=== PATIENT | male | born 1980 | race Caucasian/White ===

== ENCOUNTER 2016-07-30 22:09 | Emergency (ER) | payer BC, OTHER ==
[2016-07-30 22:29] LABS: SPECIFIC GRAVITY 1.025 (1.001-1.030); URINE BILIRUBIN NEGATIVE (NEGATIVE); URINE BLOOD 4+ (NEGATIVE); URINE GLUCOSE (UA) NEGATIVE (NEGATIVE); URINE LEUKOCYTE ESTERASE TRACE (NEGATIVE); URINE NITRITE NEGATIVE (NEGATIVE); URINE PROTEIN 1+ (NEGATIVE); URINE UROBILINOGEN NORMAL (0-1 mg/dl)
[2016-07-30 22:40] LABS: URINE APPEARANCE TURBID; URINE COLOR BROWN; URINE EPITHELIAL CELLS 0-2 /hpf; URINE RBC PACKED /hpf
[2016-07-30 22:41] LABS: URINE AMORPHOUS SEDIMENT FEW; URINE BACTERIA 2+
[2016-07-30 23:31] LABS: ABSOLUTE NEUTROPHIL COUNT 6.2 K/mm3 (1.8-7.7); BASO # 0.1 K/mm3 (0.0-0.2); BASO % 0.9 % (0.2-1.0); EOS # 0.1 (0.0-0.5); EOS % 0.7 % (0.9-2.9); HEMATOCRIT 44.4 % (32.0-52.0); HEMOGLOBIN 15.4 gm/l (14.0-18.0); IMM NEUT% 0.4 % (0-1); LYMPH # 2.9 (1.0-4.8); LYMPH % 29.3 % (15-45); MEAN CELL VOLUME 81.6 fl (80.0-94.0); MEAN CORPUSCULAR HEMOGLOBIN 28.3 pg (27.0-31.0); MEAN CORPUSCULAR HGB CONC 34.7 g/dl (33.0-37.0); MEAN PLATELET VOLUME 9.2 fl (7.4-10.4); MONO # 0.6 (0.0-0.8); NEUT % 62.7 % (43-75); PLATELET COUNT 347 K/mm3 (130-400); RED CELL DISTRIBUTION WIDTH 13.2 % (11.5-14.5)
[2016-07-30 23:48] LABS: ALB/GLOB RATIO 1.6 (>1.0); ALBUMIN 4.8 gm/dL (3.5-5.7); CALCIUM 9.9 mg/dL (8.6-10.3)
[2016-07-31] MEDS ORDERED: KETOROLAC TROMETHAMINE 30 MG/ML 1 ML VIAL ONE (00:19)
--- NOTE | 2016-07-31 07:04 | CT ---
Exam Type: ABD/PELVIS W/O CON Date and Time: 07/31/2016 12:21 AM Clinical information: Right flank pain. Comparison: None Procedure: Imaging device: [employer] Aqu[employer] [address] scanner 1 mm axial images were obtained through the abdomen and pelvis. Stacked reconstructed 3, 4 and 5 mm images were photographed in the axial coronal and sagittal planes. No oral contrast was utilized for this examination. Exam: Without intravenous contrast. FINDINGS: Lung bases: There is linear atelectasis or scarring identified within the left pulmonary base. No effusion or pneumothorax is observed. Liver: the liver is homogeneous with no discrete abnormality visualized. No definite findings of biliary dilatation are observed. Spleen: The spleen is homogeneous and does not appear to be enlarged. Gallbladder: Normal without enlargement or evidence of adjacent inflammatory changes. Pancreas: Normal without enlargement or evidence of adjacent inflammatory changes. Adrenal glands: Normal without enlargement or evidence of adjacent inflammatory changes. Abdominal aorta: The aorta is of normal caliber and appears to be without significant atherosclerotic disease. Kidneys: The kidneys appear to be of symmetric size with no perinephric inflammatory stranding visualized. No definite renal mass is observed. There is minimal prominence of the right renal collecting system and ureter. Within the distal right ureter just proximal to the ureterovesicular junction is a 3 mm calculus, best seen on axial image 153. The left ureter is of normal caliber. Bowel structures: The visualized bowel is of normal caliber without evidence of dilatation or obstruction. No free fluid or mesenteric inflammatory changes are identified. Appendix: Not well visualized. Bladder: The bladder is of normal contour. No wall thickening or significant distention is observed. Hernia: There is a small fat filled umbilical hernia observed. Adenopathy: A few mildly prominent right lower quadrant mesenteric lymph nodes are visualized. Osseous structures: No discrete osseous abnormalities are identified. Pelvic structures: No discrete pelvic abnormalities are visualized in this examination. IMPRESSION: 1. A 3 mm right-sided intraureteral calculus located within the distal right ureter just proximal to the ureterovesicular junction with minimal right-sided hydronephrosis. 2. Nonvisualization of the appendix. 3. A few mildly prominent right lower quadrant mesenteric lymph nodes. 4. A fat filled umbilical hernia. The findings were called to the emergency room at 0137 hours, 07/31/2016, by [facility].
== END 2016-07-31 02:13 | disposition home or self-care (01) ==
LOC: ED 22:09
DX: N20.1 Calculus of ureter (principal); Z85.6 Personal history of leukemia
CPT/HCPCS: 83690; 85025; 87086; 80053; 81001; 74176; 99283 ×2; 96374; J1885